=== PATIENT | male | born 1955 | race Caucasian/White ===

== ENCOUNTER 2020-12-31 23:20 | Inpatient (IN) | payer OTHER ==
[2021-01-01] MEDS ORDERED: THROMBIN (BOVINE) 5,000 UNIT VIAL TP ONE (00:09)
[2021-01-01 00:28] LABS: BASO % 0.3 % (0-2.0); EOS % 0.2 % (0-4.5); HEMATOCRIT 24.5 % (35.4-49); HEMOGLOBIN 8.4 GM/dL (11.7-16.9); LYMPH % 10.2 % (8-40); MCH 30.3 pg (25.7-33.7); MCHC 34.2 g/dl (32.0-35.9); MEAN CELL VOLUME 88.6 fl (80-96); MEAN PLT VOLUME 8.4 fl (7.5-11.1); MONO % 7.4 % (3.8-10.2); NEUT % 81.9 % (42.8-82.8); PLATELET COUNT 378 K/MM3 (134-434); RBC 2.77 M/mm3 (4.00-5.60); RDW 13.8 % (11.9-15.9); WHITE BLOOD COUNT 7.2 K/mm3 (4.0-10.0)
[2021-01-01 00:37] LABS: INR 1.01 (0.83-1.09); PROTHROMBIN TIME (PATIENT) 12.4 SEC (9.7-13.0)
[2021-01-01 00:40] LABS: ACTIVATED PTT 26.3 SECONDS (25.2-36.5)
[2021-01-01 00:43] LABS: POTASSIUM 3.8 mmol/L (3.5-5.1)
[2021-01-01 00:45] LABS: ALBUMIN 1.7 g/dl (3.4-5.0); CALCIUM 7.8 mg/dL (8.5-10.1)
[2021-01-01 00:46] LABS: BLOOD UREA NITROGEN 26.8 mg/dL (7-18); MAGNESIUM 1.9 mg/dL (1.8-2.4)
[2021-01-01 00:49] LABS: CREATININE 1.1 mg/dL (0.55-1.3); PHOSPHOROUS 3.3 mg/dL (2.5-4.9)
[2021-01-01 00:50] LABS: BILIRUBIN,TOTAL 0.4 mg/dL (0.2-1); TOT PROT 4.9 g/dl (6.4-8.2)
[2021-01-01] MEDS ORDERED: ROCURONIUM BROMIDE 50 MG/5 ML SYRINGE ONE (00:54)
[2021-01-01] MEDS ORDERED: VANCOMYCIN 1,000 MG VIAL (RESTRICTED TO ID ONLY) ONE (00:54)
[2021-01-01] MEDS ORDERED: ceFAZolin SODIUM 1 GM VIAL ONE (00:54)
[2021-01-01] MEDS ORDERED: PROPOFOL 20 ML ONE (00:54)
[2021-01-01] MEDS ORDERED: fentaNYL CITRATE 250 MCG/5 ML VIAL ONE (00:54)
[2021-01-01] MEDS ORDERED: VANCOMYCIN 1,000 MG VIAL (RESTRICTED TO ID ONLY) IVPB ONE (02:00)
[2021-01-01] MEDS ORDERED: ceFAZolin SODIUM 1 GM VIAL IVPB ONE (02:15)
[2021-01-01] MEDS ORDERED: ONDANSETRON 4 MG/2 ML VIAL ONE (02:53)
[2021-01-01] MEDS ORDERED: DEXAMETHASONE SOD PHOSPHATE 4 MG/1 ML VIAL ONE (02:53)
[2021-01-01] MEDS ORDERED: ONDANSETRON 4 MG/2 ML VIAL IVPUSH PRN (03:27)
[2021-01-01] MEDS: LACTATED RINGERS SOLUTION 1,000 ML IV SCH ×2 (04:55→23:00)
[2021-01-01 06:49] LABS: BASO % 0.2 % (0-2.0); EOS % 0.1 % (0-4.5); HEMATOCRIT 29.2 % (35.4-49); HEMOGLOBIN 9.9 GM/dL (11.7-16.9); LYMPH % 4.7 % (8-40); MCH 30.1 pg (25.7-33.7); MCHC 33.7 g/dl (32.0-35.9); MEAN CELL VOLUME 89.2 fl (80-96); MEAN PLT VOLUME 8.4 fl (7.5-11.1); MONO % 3.1 % (3.8-10.2); NEUT % 91.9 % (42.8-82.8); PLATELET COUNT 343 K/MM3 (134-434); RBC 3.27 M/mm3 (4.00-5.60); RDW 14.1 % (11.9-15.9); WHITE BLOOD COUNT 9.8 K/mm3 (4.0-10.0)
[2021-01-01 07:10] LABS: POTASSIUM 3.9 mmol/L (3.5-5.1)
[2021-01-01 07:20] LABS: ALBUMIN 1.7 g/dl (3.4-5.0); BLOOD UREA NITROGEN 25.3 mg/dL (7-18); MAGNESIUM 1.9 mg/dL (1.8-2.4)
[2021-01-01 07:23] LABS: CREATININE 1.1 mg/dL (0.55-1.3); PHOSPHOROUS 3.4 mg/dL (2.5-4.9)
[2021-01-01 07:24] LABS: BILIRUBIN,TOTAL 0.4 mg/dL (0.2-1)
[2021-01-01 07:25] LABS: TOT PROT 4.7 g/dl (6.4-8.2)
[2021-01-01] MEDS ORDERED: morphine SULFATE 4 MG/ML VIAL IVPUSH ONE (08:25)
[2021-01-01] MEDS: MUPIROCIN 2% TOPICAL OINTMENT FOR DECOLONIZATION NS SCH ×2 (09:17→21:12)
[2021-01-01] MEDS: CEFAZOLIN 1 GM/D5W 1 GM/50 ML BAG IVPB SCH ×2 (09:17→17:47)
[2021-01-01 09:19] LABS: ANISOCYTOSIS 2+; MACROCYTOSIS 0; PLATELET ESTIMATE NORMAL
[2021-01-01] MEDS ORDERED: TACROLIMUS 0.5 MG CAPSULE PO SCH (12:00)
[2021-01-01] MEDS ORDERED: PT OWN MED DRAWER 7, Y5N ONE (12:48)
[2021-01-01] MEDS: predniSONE 5 MG TABLET (UD) PO SCH (12:54)
[2021-01-01] MEDS: VERAPAMIL HCL 120 MG E.R. TABLET PO SCH ×2 (12:55→21:12)
[2021-01-01] MEDS: MYCOPHENOLATE MOFETIL 500 MG TABLET PO SCH ×2 (12:55→21:13)
[2021-01-01] MEDS: METOPROLOL TARTRATE 5 MG/5 ML VIAL IVPUSH PRN (15:17)
[2021-01-01] MEDS: INSULIN SLIDING SCALE (NOVOLOG) 1 VIAL SQ SCH ×2 (17:47→21:15)
[2021-01-01] MEDS ORDERED: POLYETHYLENE GLYCOL 3350 119 GM BTL PO ONE (21:05)
[2021-01-01] MEDS: ATORVASTATIN CA 40 MG TABLET (FP) PO SCH (21:11)
[2021-01-01] MEDS: oxyCODONE HCL 5 MG TABLET PO PRN (21:11)
[2021-01-01] MEDS: FAMOTIDINE 20 MG TABLET PO SCH (21:13)
[2021-01-01] MEDS: CHLORHEXIDINE GLUCONATE 4% CLEANSER FOR DECOLONIZATION TP SCH (21:13)
[2021-01-01] MEDS ORDERED: INSULIN (LEVEMIR) 100 UNITS/ML UNITS SQ SCH (22:00)
[2021-01-01] MEDS: TACROLIMUS ANHYDROUS 1 MG CAPSULE PO SCH (22:21)
[2021-01-02] MEDS: CEFAZOLIN 1 GM/D5W 1 GM/50 ML BAG IVPB SCH (01:13)
[2021-01-02 06:33] LABS: BASO % 0.4 % (0-2.0); EOS % 0.1 % (0-4.5); HEMATOCRIT 27.7 % (35.4-49); HEMOGLOBIN 9.8 GM/dL (11.7-16.9); LYMPH % 6.8 % (8-40); MCH 30.6 pg (25.7-33.7); MCHC 35.4 g/dl (32.0-35.9); MEAN CELL VOLUME 86.6 fl (80-96); MONO % 4.2 % (3.8-10.2); NEUT % 88.5 % (42.8-82.8); PLATELET COUNT 363 K/MM3 (134-434); RDW 13.7 % (11.9-15.9); WHITE BLOOD COUNT 8.1 K/mm3 (4.0-10.0)
[2021-01-02] MEDS: METOPROLOL TARTRATE 5 MG/5 ML VIAL IVPUSH PRN (06:33)
[2021-01-02 06:35] LABS: PROTHROMBIN TIME (PATIENT) 12.1 SEC (9.7-13.0)
[2021-01-02 06:38] LABS: ACTIVATED PTT 23.3 SECONDS (25.2-36.5)
[2021-01-02] MEDS: LACTATED RINGERS SOLUTION 1,000 ML IV SCH (06:41)
[2021-01-02 06:53] LABS: POTASSIUM 3.8 mmol/L (3.5-5.1)
[2021-01-02 06:55] LABS: BLOOD UREA NITROGEN 28.6 mg/dL (7-18); CALCIUM 7.7 mg/dL (8.5-10.1)
[2021-01-02] MEDS: INSULIN SLIDING SCALE (NOVOLOG) 1 VIAL SQ SCH ×4 (06:55→22:25)
[2021-01-02 06:56] LABS: ALBUMIN 1.7 g/dl (3.4-5.0); MAGNESIUM 1.5 mg/dL (1.8-2.4)
[2021-01-02 06:59] LABS: CREATININE 1.1 mg/dL (0.55-1.3)
[2021-01-02 07:00] LABS: BILIRUBIN,TOTAL 0.2 mg/dL (0.2-1)
[2021-01-02 07:01] LABS: TOT PROT 4.6 g/dl (6.4-8.2)
[2021-01-02] MEDS ORDERED: PT OWN MED DRAWER 7, Y5N ONE ×2 (08:10→21:21)
[2021-01-02] MEDS: predniSONE 5 MG TABLET (UD) PO SCH (09:26)
[2021-01-02] MEDS: MYCOPHENOLATE MOFETIL 500 MG TABLET PO SCH ×2 (09:26→22:00)
[2021-01-02] MEDS: VERAPAMIL HCL 120 MG E.R. TABLET PO SCH ×2 (09:26→22:00)
[2021-01-02] MEDS: MUPIROCIN 2% TOPICAL OINTMENT FOR DECOLONIZATION NS SCH ×2 (09:26→21:26)
[2021-01-02] MEDS: FAMOTIDINE 20 MG TABLET PO SCH ×2 (09:27→21:26)
[2021-01-02] MEDS: TACROLIMUS ANHYDROUS 1 MG CAPSULE PO SCH ×2 (09:27→22:00)
[2021-01-02] MEDS ORDERED: LIDOCAINE HCL 1%, 10 MG/ML (20ML VIAL) ONE (09:56)
[2021-01-02] MEDS ORDERED: MAGNESIUM SULF 50% (8.12 MEQ/2 ML-1 GM VIAL) IVPB ONE (11:15)
[2021-01-02] MEDS ORDERED: ALBUTEROL SO4 HFA INHALER IH PRN (12:21)
[2021-01-02] MEDS ORDERED: MIDAZOLAM HCL 2 MG/2 ML SINGLE DOSE VIAL ONE (12:22)
[2021-01-02] MEDS ORDERED: ceFAZolin SODIUM 1 GM VIAL ONE (12:24)
[2021-01-02] MEDS ORDERED: ceFAZolin SODIUM 1 GM VIAL IVPB ONE (12:25)
[2021-01-02] MEDS ORDERED: INSULIN (LEVEMIR) 100 UNITS/ML UNITS SQ SCH (12:27)
[2021-01-02] MEDS ORDERED: LIDOCAINE HCL 1%, 10 MG/ML (20ML VIAL) INF ONE (12:30)
[2021-01-02] MEDS ORDERED: HEPARIN NA (PORCINE) 5,000 UNITS/ML 1ML VIAL SQ ONE (12:30)
[2021-01-02] MEDS: oxyCODONE HCL 5 MG TABLET PO PRN (19:57)
[2021-01-02] MEDS ORDERED: INSULIN (NOVOLOG MIX 70/30) 100 UNITS/ML MDV SQ ONE (21:21)
[2021-01-02] MEDS: ATORVASTATIN CA 40 MG TABLET (FP) PO SCH (21:26)
[2021-01-02] MEDS: CHLORHEXIDINE GLUCONATE 4% CLEANSER FOR DECOLONIZATION TP SCH (21:26)
[2021-01-02] MEDS: INSULIN (LEVEMIR) 100 UNITS/ML UNITS SQ SCH (22:24)
[2021-01-03] MEDS: oxyCODONE HCL 5 MG TABLET PO PRN ×2 (00:27→22:01)
[2021-01-03] MEDS: LACTATED RINGERS SOLUTION 1,000 ML IV SCH ×2 (07:01→22:01)
[2021-01-03] MEDS: INSULIN SLIDING SCALE (NOVOLOG) 1 VIAL SQ SCH ×4 (07:01→22:02)
[2021-01-03 07:24] LABS: BASO % 0.4 % (0-2.0); EOS % 0.1 % (0-4.5); HEMATOCRIT 30.7 % (35.4-49); HEMOGLOBIN 10.7 GM/dL (11.7-16.9); LYMPH % 14.3 % (8-40); MCH 30.3 pg (25.7-33.7); MCHC 34.8 g/dl (32.0-35.9); MEAN PLT VOLUME 8.1 fl (7.5-11.1); MONO % 8.1 % (3.8-10.2); NEUT % 77.1 % (42.8-82.8); PLATELET COUNT 361 K/MM3 (134-434); RBC 3.53 M/mm3 (4.00-5.60); RDW 13.5 % (11.9-15.9); WHITE BLOOD COUNT 5.9 K/mm3 (4.0-10.0)
[2021-01-03 07:45] LABS: POTASSIUM 3.5 mmol/L (3.5-5.1)
[2021-01-03 07:50] LABS: BLOOD UREA NITROGEN 27.2 mg/dL (7-18)
[2021-01-03 07:52] LABS: ALBUMIN 1.8 g/dl (3.4-5.0); CALCIUM 7.8 mg/dL (8.5-10.1); MAGNESIUM 1.6 mg/dL (1.8-2.4)
[2021-01-03 07:53] LABS: PHOSPHOROUS 2.4 mg/dL (2.5-4.9)
[2021-01-03 07:55] LABS: BILIRUBIN,TOTAL 0.4 mg/dL (0.2-1); CREATININE 0.9 mg/dL (0.55-1.3); TOT PROT 4.6 g/dl (6.4-8.2)
[2021-01-03] MEDS ORDERED: PT OWN MED DRAWER 7, Y5N ONE ×2 (08:38→21:08)
[2021-01-03] MEDS ORDERED: MAGNESIUM SULF 50% (8.12 MEQ/2 ML-1 GM VIAL) IVPB ONE (08:45)
[2021-01-03] MEDS ORDERED: NAPH,MB-DB/K PH,MBDB POWDER PACKET PO ONE (08:45)
[2021-01-03] MEDS: VERAPAMIL HCL 120 MG E.R. TABLET PO SCH ×2 (09:03→22:01)
[2021-01-03] MEDS: MYCOPHENOLATE MOFETIL 500 MG TABLET PO SCH ×2 (09:04→22:01)
[2021-01-03] MEDS: FAMOTIDINE 20 MG TABLET PO SCH ×2 (09:04→22:01)
[2021-01-03] MEDS: predniSONE 5 MG TABLET (UD) PO SCH (09:04)
[2021-01-03] MEDS: MUPIROCIN 2% TOPICAL OINTMENT FOR DECOLONIZATION NS SCH ×2 (09:05→22:01)
[2021-01-03] MEDS: TACROLIMUS ANHYDROUS 1 MG CAPSULE PO SCH ×2 (09:05→22:01)
[2021-01-03] MEDS: METOPROLOL TARTRATE 5 MG/5 ML VIAL IVPUSH PRN (17:36)
[2021-01-03] MEDS ORDERED: hydrALAZINE HCL 20 MG/ML VIAL IVPUSH ONE (18:14)
[2021-01-03 18:51] LABS: EPI CELLS 32 /uL (0-25.1); HYALINE CASTS 1 /uL (0-3.1); URINE APPEARANCE CLEAR; URINE BACTERIA 363 /uL (0-1359); URINE BILIRUBIN NEGATIVE (NEGATIVE); URINE COLOR YELLOW; URINE GLUCOSE (UA) 1+ (NEGATIVE); URINE KETONE TRACE (NEGATIVE); URINE LEUK ESTERASE NEGATIVE (NEGATIVE); URINE NITRITE NEGATIVE (NEGATIVE); URINE PROTEIN 4+ (NEGATIVE); URINE RBC 796 /uL (0-23.9); URINE UROBILINOGEN 0.2 mg/dL (0.2-1.0); URINE WBC 25 /uL (0-25.8)
[2021-01-03] MEDS: ATORVASTATIN CA 40 MG TABLET (FP) PO SCH (22:01)
[2021-01-03] MEDS: CHLORHEXIDINE GLUCONATE 4% CLEANSER FOR DECOLONIZATION TP SCH (22:01)
[2021-01-03] MEDS: INSULIN (LEVEMIR) 100 UNITS/ML UNITS SQ SCH (22:03)
[2021-01-04] MEDS: oxyCODONE HCL 5 MG TABLET PO PRN ×2 (04:08→08:46)
[2021-01-04] MEDS: LACTATED RINGERS SOLUTION 1,000 ML IV SCH (06:35)
[2021-01-04] MEDS: INSULIN SLIDING SCALE (NOVOLOG) 1 VIAL SQ SCH ×5 (06:36→22:50)
[2021-01-04 06:43] LABS: BASO % 0.2 % (0-2.0); EOS % 0.5 % (0-4.5); HEMATOCRIT 27.1 % (35.4-49); HEMOGLOBIN 9.5 GM/dL (11.7-16.9); LYMPH % 20.2 % (8-40); MCH 30.2 pg (25.7-33.7); MCHC 35.1 g/dl (32.0-35.9); MEAN PLT VOLUME 8.1 fl (7.5-11.1); MONO % 9.7 % (3.8-10.2); NEUT % 69.4 % (42.8-82.8); PLATELET COUNT 307 K/MM3 (134-434); RBC 3.15 M/mm3 (4.00-5.60); RDW 13.7 % (11.9-15.9); WHITE BLOOD COUNT 4.9 K/mm3 (4.0-10.0)
[2021-01-04 06:52] LABS: INR 1.04 (0.83-1.09); PROTHROMBIN TIME (PATIENT) 12.6 SEC (9.7-13.0)
[2021-01-04 06:53] LABS: ACTIVATED PTT 23.6 SECONDS (25.2-36.5)
[2021-01-04 07:14] LABS: POTASSIUM 3.2 mmol/L (3.5-5.1)
[2021-01-04 07:25] LABS: BLOOD UREA NITROGEN 22.2 mg/dL (7-18); CALCIUM 7.5 mg/dL (8.5-10.1)
[2021-01-04 07:26] LABS: ALBUMIN 1.6 g/dl (3.4-5.0); MAGNESIUM 1.7 mg/dL (1.8-2.4)
[2021-01-04 07:28] LABS: BILIRUBIN,TOTAL 0.7 mg/dL (0.2-1); CREATININE 0.8 mg/dL (0.55-1.3); PHOSPHOROUS 2.3 mg/dL (2.5-4.9)
[2021-01-04] MEDS ORDERED: POTASSIUM CHLORIDE 20 MEQ PREMIX IVPB 100 ML IVPB SCH (08:00)
[2021-01-04] MEDS ORDERED: MAGNESIUM SULF 50% (8.12 MEQ/2 ML-1 GM VIAL) IVPB ONE (08:45)
[2021-01-04] MEDS ORDERED: POTASSIUM PHOSPHATE 15 MM in SODIUM CHLORIDE 100 ML IVPB ONE (09:00)
[2021-01-04] MEDS ORDERED: PT OWN MED DRAWER 7, Y5N ONE ×2 (09:09→09:26)
[2021-01-04] MEDS: FAMOTIDINE 20 MG TABLET PO SCH ×2 (09:11→21:13)
[2021-01-04] MEDS: VERAPAMIL HCL 120 MG E.R. TABLET PO SCH ×2 (09:11→21:12)
[2021-01-04] MEDS: TACROLIMUS ANHYDROUS 1 MG CAPSULE PO SCH ×2 (09:11→21:19)
[2021-01-04] MEDS: predniSONE 5 MG TABLET (UD) PO SCH (09:11)
[2021-01-04] MEDS: MYCOPHENOLATE MOFETIL 500 MG TABLET PO SCH ×2 (09:11→21:20)
[2021-01-04] MEDS: MUPIROCIN 2% TOPICAL OINTMENT FOR DECOLONIZATION NS SCH ×3 (09:13→23:05)
[2021-01-04] MEDS: KCL 10 MEQ IVPB 10 MEQ/100 ML INFUS.BAG IVPB SCH ×3 (10:00→12:15)
[2021-01-04] MEDS ORDERED: BENZOIN/ALOE VERA/STORAX/TOLU 58 ML BOTTLE ONE (13:40)
[2021-01-04] MEDS ORDERED: THROMBIN (BOVINE) 5,000 UNIT VIAL TP ONE ×2 (13:41→16:11)
[2021-01-04] MEDS ORDERED: MIDAZOLAM HCL 2 MG/2 ML SINGLE DOSE VIAL ONE (14:19)
[2021-01-04] MEDS ORDERED: fentaNYL CITRATE 250 MCG/5 ML VIAL ONE (14:19)
[2021-01-04] MEDS ORDERED: PROPOFOL 20 ML ONE ×2 (14:20)
[2021-01-04] MEDS ORDERED: ROCURONIUM BROMIDE 100 MG/10 ML VIAL ONE (14:20)
[2021-01-04] MEDS ORDERED: LIDOCAINE 1%/EPI 1:100000 (50 ML MULTI DOSE VIAL) ONE (15:18)
[2021-01-04] MEDS ORDERED: VANCOMYCIN 1,000 MG VIAL (RESTRICTED TO ID ONLY) IVPB ONE (15:55)
[2021-01-04] MEDS ORDERED: ceFAZolin SODIUM 1 GM VIAL IVPB ONE ×2 (15:55→17:51)
[2021-01-04] MEDS ORDERED: LIDOCAINE 1%/EPI 1:100000 (50 ML MULTI DOSE VIAL) NR ONE (16:11)
[2021-01-04] MEDS ORDERED: GENTAMICIN SO4 80 MG/2 ML VIAL IVPB ONE (16:11)
[2021-01-04] MEDS ORDERED: HYDROGEN PEROXIDE 473 ML PO ONE (16:11)
[2021-01-04] MEDS ORDERED: BACITRACIN 50,000 UNITS VIAL TP ONE (16:11)
[2021-01-04] MEDS ORDERED: LACTATED RINGERS SOLUTION 1,000 ML IV SCH ×2 (16:15→21:45)
[2021-01-04] MEDS ORDERED: EPHEDRINE SULFATE/0.9% NACL/PF 50 MG/10 ML SYRINGE NR ONE (16:25)
[2021-01-04] MEDS ORDERED: ePHEDrine SULFATE 50 MG/1 ML AMPULE ONE (17:20)
[2021-01-04] MEDS ORDERED: NEOSTIGMINE METHYLSULFATE 0.5 MG/ML - 10 ML MDV ONE (17:48)
[2021-01-04] MEDS: CHLORHEXIDINE GLUCONATE 4% CLEANSER FOR DECOLONIZATION TP SCH ×2 (21:12→23:06)
[2021-01-04] MEDS: ATORVASTATIN CA 40 MG TABLET (FP) PO SCH (21:13)
[2021-01-04] MEDS: INSULIN (LEVEMIR) 100 UNITS/ML UNITS SQ SCH ×2 (21:20→22:40)
[2021-01-04] MEDS ORDERED: ONDANSETRON 4 MG/2 ML VIAL IVPUSH PRN (21:37)
[2021-01-04] MEDS: CEFAZOLIN 2 GM/D5W 2 GM/50 ML ML IVPB SCH (23:55)
[2021-01-05] MEDS: CEFAZOLIN 2 GM/D5W 2 GM/50 ML ML IVPB SCH ×4 (03:40→21:01)
[2021-01-05] MEDS: INSULIN SLIDING SCALE (NOVOLOG) 1 VIAL SQ SCH ×3 (06:59→17:20)
[2021-01-05] MEDS: oxyCODONE HCL 5 MG TABLET PO PRN ×2 (07:00→21:00)
[2021-01-05 07:38] LABS: POTASSIUM 5.1 mmol/L (3.5-5.1)
[2021-01-05 07:40] LABS: BASO % 0.1 % (0-2.0); HEMATOCRIT 30.1 % (35.4-49); HEMOGLOBIN 10.3 GM/dL (11.7-16.9); LYMPH % 2.6 % (8-40); MCH 30.2 pg (25.7-33.7); MCHC 34.3 g/dl (32.0-35.9); MEAN CELL VOLUME 87.9 fl (80-96); MEAN PLT VOLUME 8.4 fl (7.5-11.1); MONO % 4.6 % (3.8-10.2); NEUT % 92.7 % (42.8-82.8); PLATELET COUNT 258 K/MM3 (134-434); RBC 3.42 M/mm3 (4.00-5.60); RDW 13.4 % (11.9-15.9)
[2021-01-05 07:46] LABS: ALBUMIN 1.6 g/dl (3.4-5.0); BLOOD UREA NITROGEN 31.2 mg/dL (7-18); CALCIUM 7.5 mg/dL (8.5-10.1); MAGNESIUM 2.1 mg/dL (1.8-2.4); PHOSPHOROUS 4.8 mg/dL (2.5-4.9)
[2021-01-05 07:47] LABS: BILIRUBIN,TOTAL 0.4 mg/dL (0.2-1)
[2021-01-05 07:50] LABS: CREATININE 1.5 mg/dL (0.55-1.3)
[2021-01-05] MEDS ORDERED: PT OWN MED DRAWER 7, Y5N ONE ×2 (10:08→20:50)
[2021-01-05] MEDS: VERAPAMIL HCL 120 MG E.R. TABLET PO SCH ×2 (10:22→23:16)
[2021-01-05] MEDS: TACROLIMUS ANHYDROUS 1 MG CAPSULE PO SCH (10:22)
[2021-01-05] MEDS: FAMOTIDINE 20 MG TABLET PO SCH ×2 (10:22→23:16)
[2021-01-05] MEDS: MUPIROCIN 2% TOPICAL OINTMENT FOR DECOLONIZATION NS SCH ×2 (10:22→23:16)
[2021-01-05] MEDS: predniSONE 5 MG TABLET (UD) PO SCH (10:22)
[2021-01-05] MEDS: MYCOPHENOLATE MOFETIL 500 MG TABLET PO SCH ×2 (10:22→23:16)
[2021-01-05] MEDS ORDERED: SODIUM CHLORIDE 0.45% 1,000 ML IV SCH (12:45)
[2021-01-05 14:45] VITALS: BMI 20.2
[2021-01-05] MEDS: SODIUM CHLORIDE 0.45% 1,000 ML IV SCH (17:19)
[2021-01-05] MEDS: CHLORHEXIDINE GLUCONATE 4% CLEANSER FOR DECOLONIZATION TP SCH (21:00)
[2021-01-05] MEDS: TACROLIMUS 0.5 MG CAPSULE PO SCH (23:16)
[2021-01-05] MEDS: ATORVASTATIN CA 40 MG TABLET (FP) PO SCH (23:16)
[2021-01-05] MEDS ORDERED: MORPHINE SULFATE 2 MG/ML VIAL IVPUSH ONE (23:51)
[2021-01-05] MEDS ORDERED: MORPHINE SULFATE 2 MG/ML VIAL ONE (23:53)
[2021-01-06] MEDS: INSULIN (LEVEMIR) 100 UNITS/ML UNITS SQ SCH ×2 (00:01→22:26)
[2021-01-06] MEDS: INSULIN SLIDING SCALE (NOVOLOG) 1 VIAL SQ SCH ×5 (00:02→22:24)
[2021-01-06] MEDS: TACROLIMUS 0.5 MG CAPSULE PO SCH ×3 (00:10→22:24)
[2021-01-06] MEDS: ATORVASTATIN CA 40 MG TABLET (FP) PO SCH ×2 (00:10→22:22)
[2021-01-06] MEDS: FAMOTIDINE 20 MG TABLET PO SCH ×3 (00:10→22:23)
[2021-01-06] MEDS: MYCOPHENOLATE MOFETIL 500 MG TABLET PO SCH ×3 (00:10→22:23)
[2021-01-06] MEDS ORDERED: SIMETHICONE 80 MG TAB.CHEW (FP) PO ONE (01:08)
[2021-01-06] MEDS ORDERED: oxyCODONE HCL 5 MG TABLET PO PRN ×2 (05:07)
[2021-01-06 06:00] LABS: EPI CELLS >36 /uL (0-25.1); HYALINE CASTS 9 /uL (0-3.1); PH,URINE 5.5 (5.0-8.0); URINE APPEARANCE CLOUDY; URINE BACTERIA 37 /uL (0-1359); URINE BILIRUBIN NEGATIVE (NEGATIVE); URINE COLOR YELLOW; URINE GLUCOSE (UA) 1+ (NEGATIVE); URINE KETONE TRACE (NEGATIVE); URINE LEUK ESTERASE NEGATIVE (NEGATIVE); URINE NITRITE NEGATIVE (NEGATIVE); URINE PROTEIN 3+ (NEGATIVE); URINE RBC 22 /uL (0-23.9); URINE UROBILINOGEN 0.2 mg/dL (0.2-1.0)
[2021-01-06] MEDS ORDERED: MORPHINE SULFATE 2 MG/ML VIAL IVPUSH ONE (06:11)
[2021-01-06] MEDS: predniSONE 5 MG TABLET (UD) PO SCH (09:52)
[2021-01-06] MEDS: VERAPAMIL HCL 120 MG E.R. TABLET PO SCH ×2 (09:52→22:23)
[2021-01-06] MEDS: MUPIROCIN 2% TOPICAL OINTMENT FOR DECOLONIZATION NS SCH ×2 (09:53→22:24)
[2021-01-06 10:12] LABS: BASO % 0.3 % (0-2.0); EOS % 0.4 % (0-4.5); HEMATOCRIT 26.4 % (35.4-49); HEMOGLOBIN 9.3 GM/dL (11.7-16.9); LYMPH % 10.2 % (8-40); MCH 30.4 pg (25.7-33.7); MCHC 35.4 g/dl (32.0-35.9); MEAN PLT VOLUME 8.3 fl (7.5-11.1); MONO % 9.1 % (3.8-10.2); PLATELET COUNT 211 K/MM3 (134-434); RBC 3.07 M/mm3 (4.00-5.60); RDW 13.9 % (11.9-15.9); WHITE BLOOD COUNT 8.1 K/mm3 (4.0-10.0)
[2021-01-06 10:35] LABS: ALBUMIN 1.6 g/dl (3.4-5.0); BLOOD UREA NITROGEN 28.4 mg/dL (7-18); MAGNESIUM 1.9 mg/dL (1.8-2.4)
[2021-01-06 10:37] LABS: CALCIUM 7.6 mg/dL (8.5-10.1)
[2021-01-06 10:38] LABS: CREATININE 1.3 mg/dL (0.55-1.3)
[2021-01-06 10:39] LABS: BILIRUBIN,TOTAL 0.2 mg/dL (0.2-1); PHOSPHOROUS 2.8 mg/dL (2.5-4.9)
[2021-01-06 10:40] LABS: TOT PROT 3.8 g/dl (6.4-8.2)
[2021-01-06 10:42] LABS: POTASSIUM 3.5 mmol/L (3.5-5.1)
[2021-01-06 12:18] LABS: URINE WBC 72.4 /uL (0-25.8)
[2021-01-06] MEDS: SODIUM CHLORIDE 0.45% 1,000 ML IV SCH (17:17)
[2021-01-06] MEDS ORDERED: POTASSIUM CHLORIDE TABS 20 MEQ TABLET.ER (FP) PO ONE (17:57)
[2021-01-06] MEDS ORDERED: SODIUM CHLORIDE 0.45% 1,000 ML IV SCH (17:58)
[2021-01-06] MEDS ORDERED: PT OWN MED DRAWER 7, Y5N ONE (21:49)
[2021-01-06] MEDS: CHLORHEXIDINE GLUCONATE 4% CLEANSER FOR DECOLONIZATION TP SCH (22:26)
[2021-01-07 06:42] LABS: CHLORIDE 109 mmol/L (98-107); POTASSIUM 3.6 mmol/L (3.5-5.1); SODIUM 142 mmol/L (136-145)
[2021-01-07 06:44] LABS: CALCIUM 7.5 mg/dL (8.5-10.1)
[2021-01-07 06:45] LABS: ALBUMIN 1.5 g/dl (3.4-5.0); GLUCOSE,RANDOM 128 mg/dL (74-106); MAGNESIUM 1.7 mg/dL (1.8-2.4)
[2021-01-07 06:48] LABS: PHOSPHOROUS 2.5 mg/dL (2.5-4.9); SGOT/AST 17 U/L (15-37)
[2021-01-07 06:49] LABS: BILIRUBIN,TOTAL 0.4 mg/dL (0.2-1)
[2021-01-07 06:50] LABS: TOT PROT 3.7 g/dl (6.4-8.2)
[2021-01-07 06:51] LABS: ALK PHOS 86 U/L (45-117)
[2021-01-07 06:55] LABS: ANION GAP 9 MMOL/L (8-16); CO2 23 mmol/L (21-32); SGPT/ALT < 6 U/L (13-61)
[2021-01-07] MEDS: INSULIN SLIDING SCALE (NOVOLOG) 1 VIAL SQ SCH ×4 (07:01→21:58)
[2021-01-07] MEDS ORDERED: ONDANSETRON 4 MG/2 ML VIAL IVPUSH PRN (07:18)
[2021-01-07] MEDS ORDERED: ALBUTEROL SO4 HFA INHALER IH PRN (07:18)
[2021-01-07] MEDS ORDERED: METOPROLOL TARTRATE 5 MG/5 ML VIAL IVPUSH PRN (07:18)
[2021-01-07] MEDS ORDERED: PT OWN MED DRAWER 7, Y5N ONE (09:09)
[2021-01-07] MEDS: VERAPAMIL HCL 120 MG E.R. TABLET PO SCH ×2 (09:23→21:57)
[2021-01-07] MEDS: MYCOPHENOLATE MOFETIL 500 MG TABLET PO SCH ×2 (09:24→21:57)
[2021-01-07] MEDS: predniSONE 5 MG TABLET (UD) PO SCH (09:25)
[2021-01-07] MEDS: TACROLIMUS 0.5 MG CAPSULE PO SCH ×2 (09:25→21:58)
[2021-01-07] MEDS: MUPIROCIN 2% TOPICAL OINTMENT FOR DECOLONIZATION NS SCH ×2 (09:26→21:58)
[2021-01-07] MEDS: FAMOTIDINE 20 MG TABLET PO SCH ×2 (09:27→21:57)
[2021-01-07 09:57] LABS: BASO % 0.2 % (0-2.0); EOS % 2.1 % (0-4.5); HEMATOCRIT 25.9 % (35.4-49); HEMOGLOBIN 8.8 GM/dL (11.7-16.9); LYMPH % 10.6 % (8-40); MCH 29.4 pg (25.7-33.7); MCHC 33.8 g/dl (32.0-35.9); MEAN CELL VOLUME 87.2 fl (80-96); MEAN PLT VOLUME 9.2 fl (7.5-11.1); MONO % 8.7 % (3.8-10.2); NEUT % 78.4 % (42.8-82.8); PLATELET COUNT 201 K/MM3 (134-434); RBC 2.97 M/mm3 (4.00-5.60); RDW 13.7 % (11.9-15.9); WHITE BLOOD COUNT 7.2 K/mm3 (4.0-10.0)
[2021-01-07] MEDS ORDERED: MAGNESIUM SULF 50% (8.12 MEQ/2 ML-1 GM VIAL) IVPB ONE (16:27)
[2021-01-07] MEDS: LACTATED RINGERS SOLUTION 1,000 ML/1,000 ML INFUS.BAG IV SCH (17:51)
[2021-01-07] MEDS ORDERED: DOCUSATE SODIUM 100 MG CAPSULE (FP) PO ONE (21:09)
[2021-01-07] MEDS: ATORVASTATIN CA 40 MG TABLET (FP) PO SCH (21:57)
[2021-01-07] MEDS: ENOXAPARIN NA (PORCINE) 80 MG/0.8 ML DISP.SYRIN SQ SCH (21:58)
[2021-01-07] MEDS: INSULIN (LEVEMIR) 100 UNITS/ML UNITS SQ SCH (22:00)
[2021-01-08 06:41] LABS: BASO % 2.1 % (0-2.0); EOS % 1.9 % (0-4.5); HEMOGLOBIN 9.5 GM/dL (11.7-16.9); LYMPH % 11.3 % (8-40); MCH 30.4 pg (25.7-33.7); MCHC 35.1 g/dl (32.0-35.9); MEAN CELL VOLUME 86.5 fl (80-96); MEAN PLT VOLUME 8.7 fl (7.5-11.1); MONO % 8.9 % (3.8-10.2); NEUT % 75.8 % (42.8-82.8); PLATELET COUNT 217 K/MM3 (134-434); RBC 3.12 M/mm3 (4.00-5.60); RDW 13.8 % (11.9-15.9); WHITE BLOOD COUNT 6.7 K/mm3 (4.0-10.0)
[2021-01-08] MEDS: INSULIN SLIDING SCALE (NOVOLOG) 1 VIAL SQ SCH ×4 (06:41→21:56)
[2021-01-08 07:14] LABS: POTASSIUM 3.2 mmol/L (3.5-5.1)
[2021-01-08 07:20] LABS: CALCIUM 7.6 mg/dL (8.5-10.1)
[2021-01-08 07:21] LABS: ALBUMIN 1.5 g/dl (3.4-5.0); BLOOD UREA NITROGEN 18.8 mg/dL (7-18); MAGNESIUM 1.9 mg/dL (1.8-2.4)
[2021-01-08 07:24] LABS: BILIRUBIN,TOTAL 0.4 mg/dL (0.2-1); CREATININE 0.9 mg/dL (0.55-1.3); PHOSPHOROUS 2.4 mg/dL (2.5-4.9); TOT PROT 3.9 g/dl (6.4-8.2)
[2021-01-08] MEDS ORDERED: POTASSIUM CHLORIDE TABS 20 MEQ TABLET.ER (FP) PO ONE (07:42)
[2021-01-08] MEDS ORDERED: NAPH,MB-DB/K PH,MBDB POWDER PACKET PO ONE (07:42)
[2021-01-08] MEDS: KCL 10 MEQ IVPB 10 MEQ/100 ML INFUS.BAG IVPB SCH ×3 (07:59→09:50)
[2021-01-08] MEDS: VERAPAMIL HCL 120 MG E.R. TABLET PO SCH ×2 (09:02→21:54)
[2021-01-08] MEDS: MYCOPHENOLATE MOFETIL 500 MG TABLET PO SCH ×2 (09:02→21:54)
[2021-01-08] MEDS: predniSONE 5 MG TABLET (UD) PO SCH (09:02)
[2021-01-08] MEDS: FAMOTIDINE 20 MG TABLET PO SCH ×2 (09:02→21:56)
[2021-01-08] MEDS: MUPIROCIN 2% TOPICAL OINTMENT FOR DECOLONIZATION NS SCH ×2 (09:02→21:54)
[2021-01-08] MEDS: TACROLIMUS 0.5 MG CAPSULE PO SCH ×2 (09:02→21:57)
[2021-01-08] MEDS: ENOXAPARIN NA (PORCINE) 80 MG/0.8 ML DISP.SYRIN SQ SCH ×2 (09:03→21:55)
[2021-01-08] MEDS: LACTATED RINGERS SOLUTION 1,000 ML/1,000 ML INFUS.BAG IV SCH (19:45)
[2021-01-08] MEDS ORDERED: PT OWN MED DRAWER 7, Y5N ONE (21:44)
[2021-01-08] MEDS: INSULIN (LEVEMIR) 100 UNITS/ML UNITS SQ SCH (21:54)
[2021-01-08] MEDS: ATORVASTATIN CA 40 MG TABLET (FP) PO SCH (21:55)
[2021-01-08] MEDS ORDERED: oxyCODONE HCL 5 MG TABLET PO ONE (22:20)
[2021-01-09] MEDS: INSULIN SLIDING SCALE (NOVOLOG) 1 VIAL SQ SCH ×4 (06:38→22:12)
[2021-01-09 07:07] LABS: BASO % 0.5 % (0-2.0); EOS % 1.3 % (0-4.5); HEMOGLOBIN 9.4 GM/dL (11.7-16.9); LYMPH % 14.6 % (8-40); MCH 30.4 pg (25.7-33.7); MCHC 34.9 g/dl (32.0-35.9); MEAN CELL VOLUME 87.2 fl (80-96); MEAN PLT VOLUME 9.7 fl (7.5-11.1); MONO % 11.3 % (3.8-10.2); NEUT % 72.3 % (42.8-82.8); PLATELET COUNT 252 K/MM3 (134-434); RBC 3.09 M/mm3 (4.00-5.60); RDW 13.9 % (11.9-15.9); WHITE BLOOD COUNT 5.5 K/mm3 (4.0-10.0)
[2021-01-09 07:28] LABS: CHLORIDE 107 mmol/L (98-107); SODIUM 138 mmol/L (136-145)
[2021-01-09 07:29] LABS: CALCIUM 7.3 mg/dL (8.5-10.1)
[2021-01-09 07:30] LABS: ALBUMIN 1.6 g/dl (3.4-5.0); ANION GAP 11 MMOL/L (8-16); BLOOD UREA NITROGEN 16.7 mg/dL (7-18); CO2 21 mmol/L (21-32); GLUCOSE,RANDOM 135 mg/dL (74-106); MAGNESIUM 1.4 mg/dL (1.8-2.4)
[2021-01-09 07:33] LABS: CREATININE 0.9 mg/dL (0.55-1.3); PHOSPHOROUS 2.4 mg/dL (2.5-4.9); SGOT/AST 18 U/L (15-37); SGPT/ALT < 6 U/L (13-61)
[2021-01-09 07:35] LABS: BILIRUBIN,TOTAL 0.5 mg/dL (0.2-1); TOT PROT 3.9 g/dl (6.4-8.2)
[2021-01-09 07:36] LABS: ALK PHOS 99 U/L (45-117)
[2021-01-09] MEDS ORDERED: PT OWN MED DRAWER 7, Y5N ONE ×2 (08:48→21:51)
[2021-01-09] MEDS: predniSONE 5 MG TABLET (UD) PO SCH (09:42)
[2021-01-09] MEDS: MYCOPHENOLATE MOFETIL 500 MG TABLET PO SCH ×2 (09:42→22:11)
[2021-01-09] MEDS: VERAPAMIL HCL 120 MG E.R. TABLET PO SCH ×2 (09:42→22:11)
[2021-01-09] MEDS: MUPIROCIN 2% TOPICAL OINTMENT FOR DECOLONIZATION NS SCH ×2 (09:44→22:11)
[2021-01-09] MEDS: FAMOTIDINE 20 MG TABLET PO SCH ×2 (09:45→22:13)
[2021-01-09] MEDS: TACROLIMUS 0.5 MG CAPSULE PO SCH ×2 (09:45→22:13)
[2021-01-09] MEDS: ENOXAPARIN NA (PORCINE) 80 MG/0.8 ML DISP.SYRIN SQ SCH ×2 (09:48→22:12)
[2021-01-09] MEDS: oxyCODONE HCL 5 MG TABLET PO PRN ×2 (12:14→19:57)
[2021-01-09] MEDS ORDERED: MAGNESIUM SULF 50% (8.12 MEQ/2 ML-1 GM VIAL) IVPB ONE (15:22)
[2021-01-09] MEDS: INSULIN (LEVEMIR) 100 UNITS/ML UNITS SQ SCH (22:11)
[2021-01-09] MEDS: ATORVASTATIN CA 40 MG TABLET (FP) PO SCH (22:12)
[2021-01-09] MEDS: NAPH,MB-DB/K PH,MBDB POWDER PACKET PO SCH (22:13)
[2021-01-10] MEDS: INSULIN SLIDING SCALE (NOVOLOG) 1 VIAL SQ SCH ×4 (06:05→23:26)
[2021-01-10 07:41] LABS: BASO % 0.5 % (0-2.0); EOS % 3.4 % (0-4.5); HEMATOCRIT 27.4 % (35.4-49); HEMOGLOBIN 9.8 GM/dL (11.7-16.9); LYMPH % 13.1 % (8-40); MCH 30.7 pg (25.7-33.7); MCHC 35.7 g/dl (32.0-35.9); MEAN CELL VOLUME 85.9 fl (80-96); MEAN PLT VOLUME 8.9 fl (7.5-11.1); MONO % 15.3 % (3.8-10.2); NEUT % 67.7 % (42.8-82.8); PLATELET COUNT 267 K/MM3 (134-434); RDW 13.9 % (11.9-15.9); WHITE BLOOD COUNT 5.4 K/mm3 (4.0-10.0)
[2021-01-10 07:52] LABS: POTASSIUM 3.8 mmol/L (3.5-5.1)
[2021-01-10 07:57] LABS: ALBUMIN 1.5 g/dl (3.4-5.0); BLOOD UREA NITROGEN 14.5 mg/dL (7-18); CALCIUM 7.2 mg/dL (8.5-10.1); MAGNESIUM 1.8 mg/dL (1.8-2.4)
[2021-01-10 08:00] LABS: PHOSPHOROUS 2.3 mg/dL (2.5-4.9)
[2021-01-10 08:01] LABS: BILIRUBIN,TOTAL 0.4 mg/dL (0.2-1)
[2021-01-10] MEDS: VERAPAMIL HCL 120 MG E.R. TABLET PO SCH ×2 (10:15→23:02)
[2021-01-10] MEDS: MYCOPHENOLATE MOFETIL 500 MG TABLET PO SCH ×2 (10:15→23:02)
[2021-01-10] MEDS: predniSONE 5 MG TABLET (UD) PO SCH (10:16)
[2021-01-10] MEDS ORDERED: PT OWN MED DRAWER 7, Y5N ONE ×2 (10:20→21:21)
[2021-01-10] MEDS: FAMOTIDINE 20 MG TABLET PO SCH ×2 (10:20→21:28)
[2021-01-10] MEDS: NAPH,MB-DB/K PH,MBDB POWDER PACKET PO SCH ×2 (10:20→21:28)
[2021-01-10] MEDS: MUPIROCIN 2% TOPICAL OINTMENT FOR DECOLONIZATION NS SCH ×2 (10:21→21:28)
[2021-01-10] MEDS: ENOXAPARIN NA (PORCINE) 80 MG/0.8 ML DISP.SYRIN SQ SCH ×2 (10:21→23:02)
[2021-01-10] MEDS: oxyCODONE HCL 5 MG TABLET PO PRN ×2 (10:21→21:27)
[2021-01-10] MEDS: TACROLIMUS 0.5 MG CAPSULE PO SCH ×2 (11:30→23:03)
[2021-01-10] MEDS: ATORVASTATIN CA 40 MG TABLET (FP) PO SCH (21:28)
[2021-01-10] MEDS: INSULIN (LEVEMIR) 100 UNITS/ML UNITS SQ SCH (23:38)
[2021-01-11] MEDS: POLYETHYLENE GLYCOL 3350 119 GM BTL PO SCH ×3 (00:23→21:51)
[2021-01-11] MEDS: SENNOSIDES 8.6MG TABLET (FP) PO SCH ×2 (00:23→22:01)
[2021-01-11] MEDS: INSULIN SLIDING SCALE (NOVOLOG) 1 VIAL SQ SCH ×4 (07:41→21:51)
[2021-01-11 08:22] LABS: BASO % 0.6 % (0-2.0); HEMOGLOBIN 9.9 GM/dL (11.7-16.9); NEUT % 66.4 % (42.8-82.8); WHITE BLOOD COUNT 5.4 K/mm3 (4.0-10.0)
[2021-01-11 08:26] LABS: EOS % 1.9 % (0-4.5); HEMATOCRIT 27.9 % (35.4-49); LYMPH % 16.8 % (8-40); MCH 30.5 pg (25.7-33.7); MCHC 35.5 g/dl (32.0-35.9); MEAN PLT VOLUME 9.2 fl (7.5-11.1); MONO % 14.3 % (3.8-10.2); PLATELET COUNT 272 K/MM3 (134-434); RBC 3.25 M/mm3 (4.00-5.60)
[2021-01-11 08:33] LABS: POTASSIUM 3.5 mmol/L (3.5-5.1)
[2021-01-11 08:35] LABS: CALCIUM 7.4 mg/dL (8.5-10.1)
[2021-01-11 08:36] LABS: ALBUMIN 1.6 g/dl (3.4-5.0); MAGNESIUM 1.6 mg/dL (1.8-2.4)
[2021-01-11 08:39] LABS: PHOSPHOROUS 2.8 mg/dL (2.5-4.9)
[2021-01-11 08:40] LABS: BILIRUBIN,TOTAL 0.4 mg/dL (0.2-1)
[2021-01-11] MEDS: MYCOPHENOLATE MOFETIL 500 MG TABLET PO SCH ×2 (09:54→21:50)
[2021-01-11] MEDS: predniSONE 5 MG TABLET (UD) PO SCH (09:54)
[2021-01-11] MEDS: FAMOTIDINE 20 MG TABLET PO SCH ×2 (09:54→21:48)
[2021-01-11] MEDS: VERAPAMIL HCL 120 MG E.R. TABLET PO SCH ×2 (09:54→21:50)
[2021-01-11] MEDS: TACROLIMUS 0.5 MG CAPSULE PO SCH ×2 (09:55→21:52)
[2021-01-11] MEDS: MUPIROCIN 2% TOPICAL OINTMENT FOR DECOLONIZATION NS SCH ×2 (09:55→21:51)
[2021-01-11] MEDS: ENOXAPARIN NA (PORCINE) 80 MG/0.8 ML DISP.SYRIN SQ SCH (10:40)
[2021-01-11] MEDS ORDERED: MAGNESIUM SULF 50% (8.12 MEQ/2 ML-1 GM VIAL) IVPB ONE (11:03)
[2021-01-11] MEDS: oxyCODONE HCL 5 MG TABLET PO PRN ×2 (12:29→21:53)
[2021-01-11] MEDS: GABAPENTIN 400 MG CAPSULE PO SCH ×2 (13:58→21:51)
[2021-01-11] MEDS: ATORVASTATIN CA 40 MG TABLET (FP) PO SCH (21:48)
[2021-01-11] MEDS: APIXABAN 5 MG TABLET PO SCH (21:48)
[2021-01-11] MEDS ORDERED: GABAPENTIN 400 MG CAPSULE PO SCH (22:00)
[2021-01-11] MEDS: INSULIN (LEVEMIR) 100 UNITS/ML UNITS SQ SCH (22:01)
[2021-01-12] MEDS: GABAPENTIN 400 MG CAPSULE PO SCH ×3 (06:22→22:09)
[2021-01-12] MEDS: INSULIN SLIDING SCALE (NOVOLOG) 1 VIAL SQ SCH ×4 (06:24→22:30)
[2021-01-12 08:05] LABS: BASO % 0.4 % (0-2.0); EOS % 1.3 % (0-4.5); HEMATOCRIT 26.9 % (35.4-49); HEMOGLOBIN 9.4 GM/dL (11.7-16.9); LYMPH % 16.6 % (8-40); MCH 30.4 pg (25.7-33.7); MEAN CELL VOLUME 86.8 fl (80-96); MEAN PLT VOLUME 8.8 fl (7.5-11.1); MONO % 11.7 % (3.8-10.2); PLATELET COUNT 265 K/MM3 (134-434); RDW 14.4 % (11.9-15.9); WHITE BLOOD COUNT 6.2 K/mm3 (4.0-10.0)
[2021-01-12 08:26] LABS: ALBUMIN 1.5 g/dl (3.4-5.0); BLOOD UREA NITROGEN 10.1 mg/dL (7-18); CALCIUM 7.1 mg/dL (8.5-10.1); MAGNESIUM 1.8 mg/dL (1.8-2.4)
[2021-01-12 08:29] LABS: PHOSPHOROUS 2.8 mg/dL (2.5-4.9)
[2021-01-12 08:31] LABS: BILIRUBIN,TOTAL 0.4 mg/dL (0.2-1); TOT PROT 3.8 g/dl (6.4-8.2)
[2021-01-12 08:32] LABS: POTASSIUM 3.4 mmol/L (3.5-5.1)
[2021-01-12] MEDS: VERAPAMIL HCL 120 MG E.R. TABLET PO SCH ×2 (09:13→22:09)
[2021-01-12] MEDS: predniSONE 5 MG TABLET (UD) PO SCH (09:14)
[2021-01-12] MEDS: MYCOPHENOLATE MOFETIL 500 MG TABLET PO SCH ×2 (09:14→22:09)
[2021-01-12] MEDS: APIXABAN 5 MG TABLET PO SCH ×2 (09:14→22:09)
[2021-01-12] MEDS: MAGNESIUM OXIDE 400 MG TABLET (FP) PO SCH (09:14)
[2021-01-12] MEDS: TACROLIMUS 0.5 MG CAPSULE PO SCH ×2 (09:15→22:10)
[2021-01-12] MEDS: FAMOTIDINE 20 MG TABLET PO SCH ×2 (10:46→22:09)
[2021-01-12] MEDS: POLYETHYLENE GLYCOL 3350 119 GM BTL PO SCH ×2 (10:46→22:04)
[2021-01-12] MEDS ORDERED: POTASSIUM CHLORIDE ORAL LIQUID 20 MEQ/15 ML PO ONE (13:45)
[2021-01-12] MEDS: SENNOSIDES 8.6MG TABLET (FP) PO SCH (22:04)
[2021-01-12] MEDS: ATORVASTATIN CA 40 MG TABLET (FP) PO SCH (22:09)
[2021-01-12] MEDS: oxyCODONE HCL 5 MG TABLET PO PRN (22:29)
[2021-01-12] MEDS: INSULIN (LEVEMIR) 100 UNITS/ML UNITS SQ SCH (22:30)
[2021-01-13] MEDS: GABAPENTIN 400 MG CAPSULE PO SCH ×2 (06:03→14:07)
[2021-01-13] MEDS: INSULIN SLIDING SCALE (NOVOLOG) 1 VIAL SQ SCH ×2 (06:03→12:22)
[2021-01-13 07:20] LABS: BASO % 0.4 % (0-2.0); EOS % 0.9 % (0-4.5); HEMATOCRIT 25.3 % (35.4-49); HEMOGLOBIN 8.9 GM/dL (11.7-16.9); MCH 30.5 pg (25.7-33.7); MCHC 35.2 g/dl (32.0-35.9); MEAN CELL VOLUME 86.5 fl (80-96); MONO % 13.1 % (3.8-10.2); NEUT % 67.6 % (42.8-82.8); PLATELET COUNT 258 K/MM3 (134-434); RBC 2.93 M/mm3 (4.00-5.60); RDW 14.7 % (11.9-15.9); WHITE BLOOD COUNT 5.7 K/mm3 (4.0-10.0)
[2021-01-13 07:43] LABS: ALBUMIN 1.4 g/dl (3.4-5.0); BLOOD UREA NITROGEN 16.1 mg/dL (7-18); CALCIUM 7.2 mg/dL (8.5-10.1); MAGNESIUM 1.8 mg/dL (1.8-2.4)
[2021-01-13 07:47] LABS: CREATININE 1.3 mg/dL (0.55-1.3); PHOSPHOROUS 2.8 mg/dL (2.5-4.9)
[2021-01-13 07:48] LABS: BILIRUBIN,TOTAL 0.3 mg/dL (0.2-1); TOT PROT 3.7 g/dl (6.4-8.2)
[2021-01-13] MEDS: MYCOPHENOLATE MOFETIL 500 MG TABLET PO SCH (09:41)
[2021-01-13] MEDS: FAMOTIDINE 20 MG TABLET PO SCH (09:41)
[2021-01-13] MEDS: predniSONE 5 MG TABLET (UD) PO SCH (09:41)
[2021-01-13] MEDS: APIXABAN 5 MG TABLET PO SCH (09:41)
[2021-01-13] MEDS: oxyCODONE HCL 5 MG TABLET PO PRN (09:42)
[2021-01-13] MEDS: MAGNESIUM OXIDE 400 MG TABLET (FP) PO SCH (09:42)
[2021-01-13] MEDS: VERAPAMIL HCL 120 MG E.R. TABLET PO SCH (09:42)
[2021-01-13] MEDS: TACROLIMUS 0.5 MG CAPSULE PO SCH (09:43)
[2021-01-13] MEDS: POLYETHYLENE GLYCOL 3350 119 GM BTL PO SCH (09:43)
[2021-01-13] MEDS ORDERED: LACTATED RINGERS SOLUTION 1,000 ML/1,000 ML INFUS.BAG IV SCH (11:30)
[2021-01-13 13:49] VITALS: BP 125/68; PULSE 68; TEMP 98
== END 2021-01-13 15:15 | DRG 28 ==
LOC: JICU 23:20 → J6WEST-2 01-11 01:41
PROVIDERS: ADMIT Orthopaedic Surgery Adult Reconstructive Orthopaedic Surgery; ATTEND Student in an Organized Health Care Education/Training Program
PROC: 0J9700Z Drainage of Back Subcutaneous Tissue and Fascia with Drainage Device, Open Approach (ICD-10-PCS; 2020-12-31)
PROC: 0JC70ZZ Extirpation of Matter from Back Subcutaneous Tissue and Fascia, Open Approach (ICD-10-PCS; 2020-12-31)
PROC: 3E10X8Z Irrigation of Skin and Mucous Membranes using Irrigating Substance (ICD-10-PCS; 2020-12-31)
PROC: B01BZZZ Fluoroscopy of Spinal Cord (ICD-10-PCS; 2020-12-31)
PROC: 06H03DZ Insertion of Intraluminal Device into Inferior Vena Cava, Percutaneous Approach (ICD-10-PCS; 2021-01-03)
PROC: B50 Imaging, Veins, Plain Radiography (ICD-10-PCS; 2021-01-03)
PROC: 0RB30ZZ Excision of Cervical Vertebral Disc, Open Approach (ICD-10-PCS; 2021-01-04)
PROC: 00NW0ZZ Release Cervical Spinal Cord, Open Approach (ICD-10-PCS; 2021-01-04)
PROC: 0PS304Z Reposition Cervical Vertebra with Internal Fixation Device, Open Approach (ICD-10-PCS; 2021-01-04)
PROC: 0RG40A0 Fusion of Cervicothoracic Vertebral Joint with Interbody Fusion Device, Anterior Approach, Anterior Column, Open Approach (ICD-10-PCS; 2021-01-04)
PROC: 0RP104Z Removal of Internal Fixation Device from Cervical Vertebral Joint, Open Approach (ICD-10-PCS; 2021-01-04)
PROC: 0RP404Z Removal of Internal Fixation Device from Cervicothoracic Vertebral Joint, Open Approach (ICD-10-PCS; 2021-01-04)
PROC: 0RG4070 Fusion of Cervicothoracic Vertebral Joint with Autologous Tissue Substitute, Anterior Approach, Anterior Column, Open Approach (ICD-10-PCS; 2021-01-04)
PROC: B01BZZZ Fluoroscopy of Spinal Cord (ICD-10-PCS; 2021-01-04)
PROC: 4A11X4G Monitoring of Peripheral Nervous Electrical Activity, Intraoperative, External Approach (ICD-10-PCS; 2021-01-04)
PROC: 0RG2070 Fusion of 2 or more Cervical Vertebral Joints with Autologous Tissue Substitute, Anterior Approach, Anterior Column, Open Approach (ICD-10-PCS; principal; 2021-01-04 12:30)
DX: S14.109A Unspecified injury at unspecified level of cervical spinal cord, initial encounter (principal); N18.6 End stage renal disease; I26.99 Other pulmonary embolism without acute cor pulmonale; G97.61 Postprocedural hematoma of a nervous system organ or structure following a nervous system procedure; T84.038A Mechanical loosening of other internal prosthetic joint, initial encounter; M47.12 Other spondylosis with myelopathy, cervical region; I82.401 Acute embolism and thrombosis of unspecified deep veins of right lower extremity; Z94.0 Kidney transplant status; N17.9 Acute kidney failure, unspecified; E11.22 Type 2 diabetes mellitus with diabetic chronic kidney disease; Z99.2 Dependence on renal dialysis; I73.9 Peripheral vascular disease, unspecified; E78.5 Hyperlipidemia, unspecified; I12.9 Hypertensive chronic kidney disease with stage 1 through stage 4 chronic kidney disease, or unspecified chronic kidney disease; N18.9 Chronic kidney disease, unspecified; M40.40 Postural lordosis, site unspecified; M47.22 Other spondylosis with radiculopathy, cervical region; Y83.8 Other surgical procedures as the cause of abnormal reaction of the patient, or of later complication, without mention of misadventure at the time of the procedure; W18.39XA Other fall on same level, initial encounter; Y92.89 Other specified places as the place of occurrence of the external cause; Z89.421 Acquired absence of other right toe(s)
CPT/HCPCS: 36415; 36430; 72125-TC; 73030-TC-LT-FY; 76000-TC-FY; 80053; 80197; 81003; 82607; 82728; 82746; 82962; 83540; 83550; 83735; 84100; 85025; 85045; 85610; 85730; 86850; 86900; 86901; 86922; 87086; 93005; 93010; 94760; 97161-GP; C9803; J1644; J7517; P9058; U0003; U0005